=== PATIENT | male | born 1975 | race Caucasian/White ===

== ENCOUNTER 2024-08-31 23:51 | Emergency (ER) | payer OTHER ==
--- NOTE | 2024-09-01 01:30 | ED ---
General Adult HPI - General Source: patient Mode of arrival: ambulatory Limitations: no limitations <Dafne Hudson - Last Filed: 09/01/24 01:29> - General Source: patient, RN notes reviewed, old records reviewed <Brody Santos - Last Filed: 09/01/24 08:04> - General Stated complaint: Syncope Time Seen by Provider: 09/01/24 01:29 - History of Present Illness Initial comments: 49-year-old male coming in from [place] for syncopal episode. Patient stood up from a picnic table and then passed out hitting his head. (Dafne Hudson) Patient originally seen as a quick note. Patient presents after having a syncopal episode at [place] last night. Has been waiting in our ER for workup and results for the last 8 hours or so. Patient has a history of recurrent syncopal episodes of unknown etiology. States he feels warm when it occurs and then has the syncopal episode. States that cold water seems to help with that. He is in [place] for cocaine abuse and last used multiple weeks ago. He currently denies any complaints other than mild forehead discomfort where he has an abrasion. Denies chest pain or shortness of breath. Denies abdominal pain. Workup is being completed. I evaluated the patient in the hallway bed.Patient states that when he fell, he thinks he lost consciousness maybe for a brief moment but states this was occurring prior to the fall with one of his typical syncopal episodes. (Brody Santos) - Related Data Allergies Allergy/AdvReac Type Severity Reaction Status Date / Time No Known Allergies Allergy Verified 09/01/24 01:50 Review of Systems ROS Other: All systems not noted in ROS Statement are negative. <Dafne Hudson - Last Filed: 09/01/24 01:29> ROS Other: All systems not noted in ROS Statement are negative. <Brody Santos - Last Filed: 09/01/24 08:04> ROS Statement: Those systems with pertinent positive or pertinent negative responses have been documented in the HPI. Review of Systems: CONST: Denies fever EYES: Denies blurry vision ENT: Denies nasal congestion C/V: Denies Chest pain RESP: Denies shortness of breath GI: Denies abdominal pain : Denies dysuria SKIN: Denies rash. MSK: Denies joint pain. NEURO: Denies headache (Brody Santos) General Exam <Dafne Hudson - Last Filed: 09/01/24 01:29> <Brody Santos - Last Filed: 09/01/24 08:04> - General Exam Comments Initial Comments: Visual Physical Exam General: Well-appearing, nontoxic, no acute distress. Head: Normocephalic, laceration Eyes: PERRLA, EOMI ENT: Airway patent Chest: Nonlabored breathing Skin: No visual rash, normal skin tone Neuro: Alert and oriented 3 Musculoskeletal: No gross abnormalities (Dafne Hudson) General: Appears in no acute distress. HEAD: Normal with no signs of head trauma. Small forehead abrasion. Negative Ryder sign. Negative raccoon eyes. EYES: PERRLA, EOMI, conjunctiva normal, no discharge. Pupils are 3 mm and equal bilaterally. ENT: Hearing grossly intact, normal oropharynx. RESPIRATORY: Clear breath sounds bilaterally. No wheezes, rales, or rhonchi. C/V: Regular rate and rhythm. S1 and S2 auscultated, no edema, peripheral pulses 2+ and intact throughout ABD: Abd is soft, nontender, nondistended EXT: Normal range of motion, no obvious deformity. Pelvis is stable. Ambulates without issue. SKIN: Small abrasion located over the anterior forehead. Not gaping. Does not require wound closure. NEURO: Alert and oriented x 4. Cranial nerves II-XII intact. No focal sensory or strength deficits. GCS of 15. Ambulates without difficulty. (Brody Santos) Course Vital Signs 09/01/24 01:36 Temperature 98.5 F Pulse Rate 58 L Respiratory 20 Rate Blood Pressure 121/67 O2 Sat by Pulse 99 Oximetry Medical Decision Making <Dafne Hudson - Last Filed: 09/01/24 01:29> - Lab Data Result diagrams: 09/01/24 01:54 09/01/24 01:54 - EKG Data -: EKG Interpreted by Me <Brody Santos - Last Filed: 09/01/24 08:04> - Medical Decision Making I performed the quick note portion of this visit, electronically signed Dafne Hudson PA-C (Dafne Hudson) Was pt. sent in by a medical professional or institution ([facility], [facility], urgent care, hospital, or skilled nursing...) When possible be specific @ -No Did you speak to anyone other than the patient for history (EMS, parent, family, police, friend...)? What history was obtained from this source @ -No Did you review nursing and triage notes (agree or disagree)? Why? @ -I reviewed and agree with nursing and triage notes Were old charts reviewed (outside hosp., previous admission, EMS record, old EKG, old radiological studies, urgent care reports/EKG's, skilled nursing records)? Report findings @ -No old charts were reviewed Differential Diagnosis (chest pain, altered mental status, abdominal pain women, abdominal pain men, vaginal bleeding, weakness, fever, dyspnea, syncope, headache, dizziness, GI bleed, back pain, seizure, CVA, palpatations, mental health, musculoskeletal)? @ -Differential Syncope: Valvular disease, hypertrophic cardiomyopathy, pulmonary embolism, tamponade, tachycardia, bradycardia, IA, hypovolemia, hemorrhage, dissection, anemia, intracranial hemorrhage, seizure, hypoglycemia, carbon monoxide poisoning, this is not meant to be an all-inclusive list. EKG interpreted by me (3pts min.). @ -As above X-rays interpreted by me (1pt min.). @ -Chest x-ray reveals no obvious acute cardiopulmonary process. CT interpreted by me (1pt min.). @ -Head CT and CT cervical spine negative for any obvious traumatic injury or acute process. U/S interpreted by me (1pt. min.). @ -None done What testing was considered but not performed or refused? (CT, X-rays, U/S, labs)? Why? @ -None What meds were considered but not given or refused? Why? @ -None Did you discuss the management of the patient with other professionals (professionals i.e. [facility], [facility], lab, RT, psych nurse, forensic social worker, purchasing/receiving, teacher, traffic officer, heel caser)? Give summary @ -No Was smoking cessation discussed for >3mins.? @ -No Was critical care preformed (if so, how long)? @ -No Were there social determinants of health that impacted care today? How? (Homelessness, low income, unemployed, alcoholism, drug addiction, transportation, low edu. Level, literacy, decrease access to med. care, fci, rehab)? @ -No Was there de-escalation of care discussed even if they declined (Discuss DNR or withdrawal of care, Hospice)? DNR status @ -No What co-morbidities impacted this encounter? (DM, HTN, Smoking, COPD, CAD, Cancer, CVA, ARF, Chemo, Hep., AIDS, mental health diagnosis, sleep apnea, morbid obesity)? @ -Recurrent syncope Was patient admitted / discharged? Hospital course, mention meds given and route, prescriptions, significant lab abnormalities, going to OR and other pertinent info. @ -Patient presents emergency department for a syncopal episode with a fall at his rehab facility. Suffered an abrasion to the forehead. Workup was completed in triage. Has a history of recurrent syncope and states that this episode was similar to ones in the past. Has never received formal workup for 1. He currently has no symptoms and has no complaints. I offered tetanus booster which she declined. We discussed his workup which included blood work that was unremarkable including an undetectable troponin. CT brain, C-spine, chest x-ray unremarkable. EKG shows no signs of acute ischemia. At this time, we both agree it is safer the patient to be discharged back to his rehab facility as he has been in our emergency department for 8 hours awaiting results of workup and has had no subsequent syncopal episodes and states that this is chronic. He will be given follow-up for neurology for further workup for these recurrent syncopal episodes as well as referrals for [facility] PCPs. He was in agreement this plan. Patient will be discharged home at this time. I offered analgesia medications which were declined. I instructed the patient to follow up with their PCP in the next 1-3 days.. I explained that the patient should return to the emergency department if they experience any worsening symptoms. Strict return precautions were discussed with the patient. The patient expressed understanding of these instructions. I answered all questions that the patient had. The patient was discharged home in good condition with their prescriptions and follow up information. Undiagnosed new problem with uncertain prognosis? @ -No Drug Therapy requiring intensive monitoring for toxicity (Heparin, Nitro, Insulin, Cardizem)? @ -No Were any procedures done? @ -No Diagnosis/symptom? @ -Syncope, forehead abrasion Acute, or Chronic, or Acute on Chronic? @ -Acute on chronic, acute Uncomplicated (without systemic symptoms) or Complicated (systemic symptoms)? @ -Uncomplicated Side effects of treatment? @ -No Exacerbation, Progression, or Severe Exacerbation? @ -No Poses a threat to life or bodily function? How? (Chest pain, USA, IA, pneumonia, PE, COPD, DKA, ARF, appy, cholecystitis, CVA, Diverticulitis, Homicidal, Suicidal, threat to staff... and all critical care pts) @ -Unlikely at this time (Brody Santos) - Lab Data Lab Results 09/01/24 09/01/24 09/01/24 Range/Units 01:54 01:54 01:54 WBC 10.2 (3.8-10.6) k/uL RBC 4.59 (4.30-5.90) m/uL Hgb 13.7 (13.0-17.5) gm/dL Hct 42.5 (39.0-53.0) % MCV 92.6 (80.0-100.0) fL MCH 29.8 (25.0-35.0) pg MCHC 32.2 (31.0-37.0) g/dL RDW 12.7 (11.5-15.5) % Plt Count 195 (150-450) k/uL MPV 6.5 Neutrophils % 69 % Lymphocytes % 19 % Monocytes % 7 % Eosinophils % 3 % Basophils % 0 % Neutrophils # 7.0 (1.3-7.7) k/uL Lymphocytes # 2.0 (1.0-4.8) k/uL Monocytes # 0.8 (0-1.0) k/uL Eosinophils # 0.3 (0-0.7) k/uL Basophils # 0.0 (0-0.2) k/uL PT 10.6 (10.0-12.5) sec INR 0.9 (<1.2) APTT 22.0 (22.0-30.0) sec Sodium 136 L (137-145) mmol/L Potassium 4.3 (3.5-5.1) mmol/L Chloride 99 (98-107) mmol/L Carbon Dioxide 29 (22-30) mmol/L Anion Gap 8 mmol/L BUN 17 (9-20) mg/dL Creatinine 0.86 (0.66-1.25) mg/dL Est GFR (CKD-EPI)AfAm >90 (>60 ml/min/1.73 sqM) Est GFR (CKD-EPI)NonAf >90 (>60 ml/min/1.73 sqM) Glucose 120 H (74-99) mg/dL Calcium 9.1 (8.4-10.2) mg/dL Total Bilirubin 0.2 (0.2-1.3) mg/dL AST 28 (17-59) U/L ALT 28 (4-49) U/L Alkaline Phosphatase 67 (38-126) U/L Troponin I (0.000-0.034) ng/mL Total Protein 6.9 (6.3-8.2) g/dL Albumin 4.3 (3.5-5.0) g/dL 09/01/24 Range/Units 01:54 WBC (3.8-10.6) k/uL RBC (4.30-5.90) m/uL Hgb (13.0-17.5) gm/dL Hct (39.0-53.0) % MCV (80.0-100.0) fL MCH (25.0-35.0) pg MCHC (31.0-37.0) g/dL RDW (11.5-15.5) % Plt Count (150-450) k/uL MPV Neutrophils % % Lymphocytes % % Monocytes % % Eosinophils % % Basophils % % Neutrophils # (1.3-7.7) k/uL Lymphocytes # (1.0-4.8) k/uL Monocytes # (0-1.0) k/uL Eosinophils # (0-0.7) k/uL Basophils # (0-0.2) k/uL PT (10.0-12.5) sec INR (<1.2) APTT (22.0-30.0) sec Sodium (137-145) mmol/L Potassium (3.5-5.1) mmol/L Chloride (98-107) mmol/L Carbon Dioxide (22-30) mmol/L Anion Gap mmol/L BUN (9-20) mg/dL Creatinine (0.66-1.25) mg/dL Est GFR (CKD-EPI)AfAm (>60 ml/min/1.73 sqM) Est GFR (CKD-EPI)NonAf (>60 ml/min/1.73 sqM) Glucose (74-99) mg/dL Calcium (8.4-10.2) mg/dL Total Bilirubin (0.2-1.3) mg/dL AST (17-59) U/L ALT (4-49) U/L Alkaline Phosphatase (38-126) U/L Troponin I <0.012 (0.000-0.034) ng/mL Total Protein (6.3-8.2) g/dL Albumin (3.5-5.0) g/dL - EKG Data EKG Comments: 12-lead Electrocardiogram Interpretation Note EKG was reviewed and interpreted by myself. 12-lead ECG performed at 0154 is interpreted by me as revealing normal sinus rhythm at a rate of 87 beats per minute. Dixon is normal. VA interval is 125 ms, QRS duration is 81 ms, QTc is 414 ms.. There were no ST or T wave abnormalities to suggest myocardial ischemia or injury. R wave progression across the precordium was satisfactory. By my interpretation this EKG is non-diagnostic for acute ischemia. (Brody Santos) Disposition <Dafne Hudson - Last Filed: 09/01/24 01:29> Is patient prescribed a controlled substance at d/c from ED?: No Time of Disposition: 07:58 <Brody Santos - Last Filed: 09/01/24 08:04> Clinical Impression: Syncope, Abrasion Disposition: HOME SELF-CARE Condition: Good Instructions (If sedation given, give patient instructions): Syncope (ED) Additional Instructions: You have a history of recurrent syncopal episodes. You should follow-up with neurology on an outpatient basis. Establish care with a PCP as well. Return the emergency department if worsening symptoms. Attempt follow-up with the next 1 to 3 days. Referrals: None,Stated [Primary Care Provider] - 1-2 days Shakir Sales DO [STAFF PHYSICIAN] - 1-2 days Forms: Area PCPs
[2024-09-01 02:20] LABS: Basophils % (A) 0 %; Eosinophils # (A) 0.3 k/uL (0-0.7); Eosinophils % (A) 3 %; HCT 42.5 % (39.0-53.0); HGB 13.7 gm/dL (13.0-17.5); Lymphocytes % (A) 19 %; MCH 29.8 pg (25.0-35.0); MCHC 32.2 g/dL (31.0-37.0); MCV 92.6 fL (80.0-100.0); Mean Platelet Volume 6.5; Monocytes # (A) 0.8 k/uL (0-1.0); Monocytes % (A) 7 %; Neutrophils % (A) 69 %; Platelet Count 195 k/uL (150-450); RBC 4.59 m/uL (4.30-5.90); RDW 12.7 % (11.5-15.5); WBC 10.2 k/uL (3.8-10.6)
[2024-09-01 02:21] LABS: ALT 28 U/L (4-49); AST 28 U/L (17-59); African American GFR (CKD) >90 (>60 ml/min/1.73 sqM); Albumin 4.3 g/dL (3.5-5.0); Alkaline Phosphatase 67 U/L (38-126); Anion Gap 8 mmol/L; Blood Urea Nitrogen 17 mg/dL (9-20); Calcium 9.1 mg/dL (8.4-10.2); Carbon Dioxide 29 mmol/L (22-30); Chloride 99 mmol/L (98-107); Glucose 120 mg/dL (74-99); Non-African American GFR(CKD) >90 (>60 ml/min/1.73 sqM); Potassium 4.3 mmol/L (3.5-5.1); Sodium 136 mmol/L (137-145); Total Bilirubin 0.2 mg/dL (0.2-1.3); Total Protein 6.9 g/dL (6.3-8.2)
[2024-09-01 02:29] LABS: INR 0.9 (<1.2); Prothrombin Time 10.6 sec (10.0-12.5)
--- NOTE | 2024-09-01 03:01 | CT ---
EXAM: CT Head Without Intravenous Contrast CLINICAL HISTORY: ITS.REASON CT Reason: head injury TECHNIQUE: Axial computed tomography images of the head/brain without intravenous contrast. CTDI is 45 mGy and DLP is 1126 mGy-cm. This CT exam was performed using one or more of the following dose reduction techniques: automated exposure control, adjustment of the mA and/or kV according to patient size, and/or use of iterative reconstruction technique. COMPARISON: No relevant prior studies available. FINDINGS: Brain: No hemorrhage or mass effect. Ventricles: No hydrocephalus. Bones/joints: Unremarkable. Soft tissues: Unremarkable. Sinuses: Trace bilateral maxillary sinus air fluid level. Mastoid air cells: Clear. IMPRESSION: No acute hemorrhage, hydrocephalus, or mass effect. EXAM: CT Cervical Spine Without Intravenous Contrast CLINICAL HISTORY: ITS.REASON CT Reason: head injury TECHNIQUE: Axial computed tomography images of the cervical spine without intravenous contrast. CTDI is 12 mGy and DLP is 384 mGy-cm. This CT exam was performed using one or more of the following dose reduction techniques: automated exposure control, adjustment of the mA and/or kV according to patient size, and/or use of iterative reconstruction technique. COMPARISON: No relevant prior studies available. FINDINGS: Vertebrae: No acute fracture. Discs/spinal canal/neural foramina: degenerative changes. Soft tissues: No prevertebral swelling. IMPRESSION: No acute fracture or subluxation.
--- NOTE | 2024-09-01 04:44 | XR ---
EXAM: XR Chest, 2 Views CLINICAL HISTORY: ITS.REASON XR Reason: syncope TECHNIQUE: Frontal and lateral views of the chest. COMPARISON: No relevant prior studies available. FINDINGS: Lungs: No consolidation or mass. Pleural space: No effusion. Heart: No cardiomegaly. Bones/joints: No acute findings. IMPRESSION: No acute cardiopulmonary process.
[2024-09-01 08:30] VITALS: BP 120/85; PULSE 60; RESP 19; TEMP 97.6
== END 2024-09-01 08:25 | disposition home or self-care (01) ==
LOC: EC 23:51
DX: S00.81XA Abrasion of other part of head, initial encounter (principal); R55 Syncope and collapse; W22.09XA Striking against other stationary object, initial encounter
CPT/HCPCS: 36415; 70450; 71046; 72125; 80053; 84484; 85025; 85610; 85730; 93005; 99284